=== PATIENT | female | born 1985 | race Caucasian/White ===

== ENCOUNTER → 2024-12-17 08:53 | Outpatient (REF) | payer BC, SELFPAY | LOC: WDC 08:53 | PROVIDERS: ATTENDING PHYSICIAN Obstetrics & Gynecology; FAMILY PHYSICIAN Student in an Organized Health Care Education/Training Program | DX: N64.4 Mastodynia (principal) | CPT/HCPCS: 76642; 77062; 77066 ==

== ENCOUNTER 2025-06-03 16:43 | Emergency (ER) | payer BC, SELFPAY ==
[2025-06-03 16:55] VITALS: BP 133/99
[2025-06-03 17:07] LABS: Hematocrit 40.3 % (37.0-47.0); Hemoglobin 14.6 g/dL (12.0-16.0); Mean Corp Hgb Conc. 36.2 g/dL (33.0-37.0); Mean Corpuscular Volume 92.4 fL (81.0-99.0); Nucleated Red Blood Cells % 0 %; Platelet Count 266 10^3/uL (130-400); Red Cell Dist. Width 12.4 % (11.5-14.5)
[2025-06-03 17:17] LABS: HCG, Serum Qualitative Screen Negative
[2025-06-03 17:26] LABS: ALT (SGPT) 30 U/L (0-35); AST (SGOT) 31 U/L (14-36); Albumin 5.0 g/dl (3.5-5.0); Alkaline Phosphatase 43 U/L (38-126); Blood Urea Nitrogen 20 mg/dl (7-17); Calcium 9.6 mg/dl (8.4-10.2); Carbon Dioxide 26 mmol/L (22-30); Chloride 104 mmol/L (98-107); Glucose 100 mg/dl (70-99); Potassium 4.3 mmol/L (3.5-5.1); Sodium 137 mmol/L (135-145); Total Protein 7.3 g/dl (6.3-8.2); eGFR > 60.00
[2025-06-03 17:32] LABS: Troponin I < 0.012 ng/ml
[2025-06-03 19:00] VITALS: BP 138/85
[2025-06-03 19:06] VITALS: BMI 36.4
[2025-06-03 19:58] LABS: D-Dimer 0.28 ug/mlFEU (0.00-0.50)
[2025-06-03 20:00] VITALS: BP 126/88
[2025-06-03 20:07] LABS: Troponin I < 0.012 ng/ml
--- NOTE | 2025-06-03 20:31 | ED.GENMED ---
History of Present Illness
General
Chief Complaint: Chest Pain
Time Seen by Provider: 06/03/25 19:02
History of Present Illness
History of Present Illness:
39-year-old female without significant past medical history is presenting to the emergency department for palpitations and chest pain. Patient reports symptoms started around 10:30 AM this morning after she took her dog to the vet. Reports she was
checking her heart rate, it was elevated. She went home to take a nap and when she woke up, was still having intermittent tachycardia and some tightness in the left side of her chest. Denies any history of cardiac disease. Denies any history of
blood clots, exogenous estrogen, recent travel or surgery. Notes that the symptoms have improved since arrival to the hospital. Denies any underlying history of arrhythmia. Denies fever or recent illness or additional acute medical complaints
Phy Exam
Physical Exam
Physical Exam:
General: Well-appearing, no clinical signs of dehydration, nontoxic and in no acute distress
HEENT: protecting airway
Neck: appears supple
CV: Normal heart rate, regular rhythm
Resp: No accessory muscle use, no increased work of breathing, lungs clear to auscultation bilaterally
Abd: Soft and non-distended, no tenderness to palpation
Extremities: No deformities, no swelling
Neuro: alert, no focal neurologic deficit
: deferred
Rectal: deferred
Psych: Normal affect
Skin: Intact
Scores
Heart Score for Chest Pain Patients
STEMI patient?: No
History: Slightly or Non-Suspicious
ECG: Normal
Age: </= 45 years
Risk Factors: No Risk Factors
Troponin: </= Normal Limit
Heart Score for Chest Pain Patients: 0
Heart Score Risk: 2.5% MACE over next 6 weeks
Course
Orders/Labs/Results
Orders:
Orders
06/03/25 16:47
Electrocardiogram (*1) Urgent
Reason for Study: Chest Pain
EKG- Treatment ONCE
Test Result ONCE
06/03/25 16:56
Comprehensive Metabolic Panel Urgent
HCG, Serum Qualitative Screen Urgent
Troponin I Urgent
06/03/25 16:57
Complete Blood Count/With Diff Urgent
06/03/25 19:31
Electrocardiogram (*1) Urgent
Reason for Study: Palpitations
EKG- Treatment ONCE
06/03/25 19:37
D-Dimer Urgent
Troponin I Urgent
Abnormal Lab Results
06/03/25 06/03/25
16:56 16:57
MCH 33.5 H pg
(27.0-31.0)
BUN 20 H mg/dl
(7-17)
Glucose 100 H mg/dl
(70-99)
06/03/25 16:57
06/03/25 16:56
Vital Signs
Initial and Last Documented VS:
Initial Vital Signs
Temp Pulse Resp BP Pulse Ox
98.4 F 103 16 133/99 99
06/03/25 16:55 06/03/25 16:55 06/03/25 16:55 06/03/25 16:55 06/03/25 16:55
Last Documented Vital Signs
Temp Pulse Resp BP Pulse Ox
98.4 F 93 18 138/85 99
06/03/25 16:55 06/03/25 19:00 06/03/25 19:05 06/03/25 19:00 06/03/25 16:55
MDM/Problems Addressed
MDM/Problems Addressed:
39-year-old female presenting for tachycardia and chest pain. Symptoms have improved since arrival. Vital signs are significant for mild tachycardia which has resolved.
On exam patient is resting comfortably, no acute distress. Heart rate has since normalized. Presenting EKG is sinus rhythm without acute evidence of ischemia. Patient without any significant coronary risk factors with low suspicion for ACS. In
addition, chest pain is since resolved. Patient notes that her heart rate was in the 130s to 140s range prior to arrival, possible SVT versus sinus tachycardia, again now resolved. Low suspicion for PE, however not satisfy PERC rule. Will screen
with laboratory analysis including troponin and dimer. Will continue to monitor via cogeneration operator.
20:40 - Dimer is negative and troponin is negative x 2. Patient low risk by heart score. Symptoms remain at bay. Ultimately feel stable for discharge, however did advise outpatient cardiology follow-up for potential Holter monitor. Return
precautions discussed patient verbalized understanding
*Pulse Oximetry
SaO2: 99
Oxygen Mode of Delivery: Room air
Patient hypoxic: no
*EKG
Interpreted by ED Provider?: Yes
EKG Intrepretation Date: 06/03/25
EKG Intrepretation Time: 20:36
Interpretation: normal
Heart Rate: 97
Rate: normal
Rhythm: sinus
[place]: normal axis
Interval: normal interval
QRS Pattern: normal QRS
Ischemia: no ischemia
*Critical Care Note
Total Time (30-74mins, 75-104mins- exclusive of procedures): Not Applicable
ED Attending Note
-
Portions of this chart may have been created with voice recognition software.� Occasional wrong word or��sound alike� substitutions may have occurred due to the inherent limitations of voice recognition software.
Discharge Plan
Departure
Prescriptions:
No Action
No Current Medications
0
Referrals:
Sherry Meier PA-C [Family Provider, Family Practice]
Interventions
Interventions:
*Risk Screen - Suicide Last Done: 06/03/25 16:51
*General Assessment Last Done: 06/03/25 16:51
*Neglect/Abuse Screening Last Done: 06/03/25 16:51
ED- Cardiac Assessment Last Done: 06/03/25 19:06
Discharge Date and Time
Print Language: GERMAN
== END 2025-06-03 20:59 | disposition home or self-care (01) ==
LOC: EMR 16:43
PROVIDERS: Emergency Medicine; EMERGENCY PHYSICIAN Student in an Organized Health Care Education/Training Program; FAMILY PHYSICIAN Student in an Organized Health Care Education/Training Program
DX: R00.2 Palpitations (principal); R07.9 Chest pain, unspecified
CPT/HCPCS: 99284; 80053; 84484; 84703; 85025; 85379; 93005